=== PATIENT | female | born 1970 | race Caucasian/White ===

== ENCOUNTER 2018-09-23 06:49 | Inpatient (IN) | payer OTHER ==
[2018-09-23 07:20] LABS: ADD MAN DIFF? NO; URINE BLOOD (Dip) POC 3+ (NEGATIVE); URINE GLUCOSE (Dip) POC Negative (NEGATIVE); URINE KETONES (Dip) POC Negative (NEGATIVE); URINE LEUKOCYTE EST (Dip) POC Trace (NEGATIVE); URINE NITRITE (Dip) POC Negative (NEGATIVE); URINE TOTAL PROTEIN POC 1+ (NEGATIVE)
[2018-09-23 07:22] LABS: BASOPHIL # 0.1 10^3/ul (0.0-0.1); BASOPHILS % 0.4 % (0.0-2.0); EOSINOPHILS % 0.2 % (0.0-7.0); HEMATOCRIT 35.9 % (37.0-47.0); HEMOGLOBIN 12.1 g/dl (12.0-16.0); LYMPHOCYTES # 1.8 10^3/ul (0.8-2.9); LYMPHOCYTES % 13.8 % (15.0-51.0); MEAN CORPUSCULAR HGB CONC 33.7 g/dl (32.0-37.0); MEAN CORPUSCULAR VOLUME 92.1 fl (82.0-101.0); MEAN PLATELET VOLUME 10.7 fl (7.4-10.4); MONOCYTE # 0.6 10^3/ul (0.3-0.9); NEUTROPHIL # 10.2 10^3/ul (1.6-7.5); NEUTROPHILS % 80.3 % (39.0-77.0); PLATELET COUNT 229 10^3/UL (140-415); RED CELL DISTRIBUTION WIDTH 13.1 % (11.5-14.5)
[2018-09-23 07:22] LABS: WHITE BLOOD COUNT 12.7 10^3/ul (4.8-10.8)
[2018-09-23] MEDS: ONDANSETRON 4 MG INJ IV (07:25)
[2018-09-23] MEDS: morphine 2 MG INJ IV ×3 (07:25→20:48)
[2018-09-23 07:43] LABS: ALANINE AMINOTRANSFERASE 16 IU/L (13-69); ALBUMIN 4.3 g/dl (3.3-4.9); ALBUMIN/GLOBULIN RATIO 1.19; ALKALINE PHOSPHATASE 78 IU/L (42-121); ANION GAP 7 (5-13); ASPARTATE AMINO TRANSFERASE 25 IU/L (15-46); BILIRUBIN,INDIRECT 0.5 mg/dl (0-1.1); BILIRUBIN,TOTAL 0.5 mg/dl (0.2-1.3); BLOOD UREA NITROGEN 17 mg/dl (7-20); CALCIUM 9.5 mg/dl (8.4-10.2); CARBON DIOXIDE 24 mmol/L (21-31); CHLORIDE 111 mmol/L (97-110); CREATININE 0.79 mg/dl (0.44-1.00); Estimated GFR > 60 mL/min (>60); GLUCOSE 118 mg/dl (70-220); LIPASE 81 U/L (23-300); POTASSIUM 4.1 mmol/L (3.5-5.1); SODIUM 142 mmol/L (135-144); TOTAL PROTEIN 7.9 g/dl (6.1-8.1)
[2018-09-23] MEDS: KETOROLAC 30 MG INJ IV (09:51)
[2018-09-23] MEDS: HYDROmorphONE 0.5 MG/0.5 ML SYG IV (09:52)
[2018-09-23] MEDS: CEFTRIAXONE 1 GM/50 ML (PMX) 50 ML IVPB (09:52)
[2018-09-23] MEDS ORDERED: ALBUTEROL/IPRATROPIUM (NEB) 3 ML AMP HHN (12:00)
[2018-09-23] MEDS ORDERED: NITROGLYCERIN (SL) 0.4 MG TAB SL (12:00)
[2018-09-23] MEDS ORDERED: HYDROCODONE/APAP (5/325) TAB PO (12:00)
[2018-09-23] MEDS ORDERED: NACL 0.9% 3 ML SYG IV (12:00)
[2018-09-23] MEDS ORDERED: hydrALAzine 20 MG INJ IV (12:00)
[2018-09-23] MEDS ORDERED: DOCUSATE SODIUM 100 MG CAP PO (12:00)
[2018-09-23] MEDS ORDERED: LORAZEPAM 2 MG INJ IV (12:00)
[2018-09-23] MEDS ORDERED: ACETAMINOPHEN 325 MG TAB PO (12:00)
[2018-09-23] MEDS ORDERED: MAGNESIUM HYDROXIDE 30ML CUP PO (12:00)
[2018-09-23] MEDS ORDERED: ONDANSETRON 4 MG INJ IV (12:00)
[2018-09-23] MEDS: PIPER-TAZO 3.375 GM IV (PMX) 100 ML IVPB ×2 (12:36→17:04)
[2018-09-23 12:47] LABS: INR 0.99; PARTIAL THROMBOPLASTIN TIME 29.2 Sec (23.0-35.0); PROTIME 13.2 Sec (11.9-14.9)
[2018-09-23 13:04] LABS: FREE T4 (FREE THYROXINE) 0.87 ng/dl (0.64-1.79)
[2018-09-23 14:32] LABS: PROTIME 13.3 Sec (11.9-14.9)
[2018-09-23] MEDS: SOD CHLORIDE 0.45% 1,000 ML IV (16:26)
[2018-09-23] MEDS: TAMSULOSIN (SR) 0.4 MG CAP PO (20:30)
[2018-09-23] MEDS: HEPARIN 5,000 UNIT/1 ML VIAL SC (20:34)
[2018-09-24] MEDS: PIPER-TAZO 3.375 GM IV (PMX) 100 ML IVPB ×5 (00:32→23:08)
[2018-09-24] MEDS: SOD CHLORIDE 0.45% 1,000 ML IV ×3 (00:56→21:42)
[2018-09-24 05:26] LABS: ADD MAN DIFF? NO
[2018-09-24 05:27] LABS: BASOPHIL # 0.1 10^3/ul (0.0-0.1); BASOPHILS % 0.7 % (0.0-2.0); EOSINOPHILS # 0.1 10^3/ul (0.0-0.5); EOSINOPHILS % 2.1 % (0.0-7.0); HEMATOCRIT 33.7 % (37.0-47.0); HEMOGLOBIN 10.9 g/dl (12.0-16.0); LYMPHOCYTES # 2.1 10^3/ul (0.8-2.9); LYMPHOCYTES % 30.8 % (15.0-51.0); MEAN CORPUSCULAR HEMOGLOBIN 30.7 pg (29.0-33.0); MEAN CORPUSCULAR HGB CONC 32.3 g/dl (32.0-37.0); MEAN CORPUSCULAR VOLUME 94.9 fl (82.0-101.0); MEAN PLATELET VOLUME 11.1 fl (7.4-10.4); MONOCYTE # 0.6 10^3/ul (0.3-0.9); MONOCYTES % 8.3 % (0.0-11.0); NEUTROPHIL # 3.9 10^3/ul (1.6-7.5); PLATELET COUNT 203 10^3/UL (140-415); RED BLOOD COUNT 3.55 10^6/ul (4.20-5.40)
[2018-09-24 05:27] LABS: WHITE BLOOD COUNT 6.8 10^3/ul (4.8-10.8)
[2018-09-24 05:58] LABS: HEMOGLOBIN A1C 5.2 % (0-5.9)
[2018-09-24 06:01] LABS: ANION GAP 8 (5-13); BLOOD UREA NITROGEN 17 mg/dl (7-20); CALCIUM 8.6 mg/dl (8.4-10.2); CARBON DIOXIDE 26 mmol/L (21-31); CHLORIDE 106 mmol/L (97-110); CREATININE 0.82 mg/dl (0.44-1.00); Estimated GFR > 60 mL/min (>60); GLUCOSE 102 mg/dl (70-220); MAGNESIUM 1.9 mg/dl (1.7-2.5); PHOSPHORUS 4.3 mg/dl (2.5-4.9); POTASSIUM 3.9 mmol/L (3.5-5.1); SODIUM 140 mmol/L (135-144)
[2018-09-24 06:38] LABS: CHOL/HDL RATIO 4.6 RATIO; HDL CHOLESTEROL 44 mg/dl (37-92); LDL CHOLESTEROL,CALCULATED 127 mg/dl; TRIGLYCERIDES 169 mg/dl (0-149)
[2018-09-24 06:38] LABS: CHOLESTEROL 205 mg/dl (100-200)
[2018-09-24] MEDS ORDERED: CEFAZOLIN 1 GM INJ (07:00)
[2018-09-24] MEDS ORDERED: SEVOFLURANE 15 MIN (07:00)
[2018-09-24] MEDS: HEPARIN 5,000 UNIT/1 ML VIAL SC ×2 (07:38→21:00)
[2018-09-24] MEDS ORDERED: MIDAZOLAM 1 MG/ML 2 ML INJ (18:20)
[2018-09-24] MEDS ORDERED: PROPOFOL 20 ML ×2 (18:20→18:32)
[2018-09-24] MEDS ORDERED: LIDOCAINE 2% (SDV) 5 ML INJ (18:20)
[2018-09-24] MEDS ORDERED: DIPHENHYDRAMINE 50 MG INJ IV (18:30)
[2018-09-24] MEDS ORDERED: MEPERIDINE 25 MG INJ IV (18:30)
[2018-09-24] MEDS ORDERED: HYDROmorphONE 1 MG/5 ML IV SYRINGE IV ×2 (18:30)
[2018-09-24] MEDS ORDERED: FENTAnyl 50 MCG/ML VIAL IV ×3 (18:30)
[2018-09-24] MEDS ORDERED: PROCHLORPERAZINE 10 MG INJ IV (18:30)
[2018-09-24] MEDS ORDERED: ONDANSETRON 4 MG INJ (18:49)
[2018-09-24] MEDS ORDERED: DEXAMETHASONE 4 MG/ML 5 ML INJ (18:49)
[2018-09-24] MEDS ORDERED: EPHEDrine 25 MG/5 ML SYG ×2 (18:54→19:12)
[2018-09-24] MEDS: HYDROmorphONE 1 MG/5 ML IV SYRINGE IV (19:45)
[2018-09-24] MEDS: ONDANSETRON 4 MG INJ IV (19:45)
[2018-09-24] MEDS: TAMSULOSIN (SR) 0.4 MG CAP PO (20:41)
[2018-09-25 05:12] LABS: ADD MAN DIFF? NO
[2018-09-25 05:22] LABS: BASOPHILS % 0.2 % (0.0-2.0); HEMOGLOBIN 11.4 g/dl (12.0-16.0); LYMPHOCYTES # 0.7 10^3/ul (0.8-2.9); LYMPHOCYTES % 10.8 % (15.0-51.0); MEAN CORPUSCULAR HEMOGLOBIN 30.6 pg (29.0-33.0); MEAN CORPUSCULAR HGB CONC 32.6 g/dl (32.0-37.0); MEAN CORPUSCULAR VOLUME 93.8 fl (82.0-101.0); MEAN PLATELET VOLUME 10.9 fl (7.4-10.4); MONOCYTE # 0.1 10^3/ul (0.3-0.9); MONOCYTES % 0.9 % (0.0-11.0); NEUTROPHIL # 5.8 10^3/ul (1.6-7.5); NEUTROPHILS % 87.6 % (39.0-77.0); PLATELET COUNT 234 10^3/UL (140-415); RED BLOOD COUNT 3.73 10^6/ul (4.20-5.40); RED CELL DISTRIBUTION WIDTH 12.8 % (11.5-14.5)
[2018-09-25 05:22] LABS: WHITE BLOOD COUNT 6.6 10^3/ul (4.8-10.8)
[2018-09-25] MEDS: PIPER-TAZO 3.375 GM IV (PMX) 100 ML IVPB ×2 (05:35→12:55)
[2018-09-25 05:37] LABS: ANION GAP 9 (5-13); BLOOD UREA NITROGEN 9 mg/dl (7-20); CARBON DIOXIDE 24 mmol/L (21-31); CHLORIDE 109 mmol/L (97-110); CREATININE 0.55 mg/dl (0.44-1.00); Estimated GFR > 60 mL/min (>60); GLUCOSE 153 mg/dl (70-220); POTASSIUM 3.7 mmol/L (3.5-5.1); SODIUM 142 mmol/L (135-144)
== END 2018-09-25 14:33 | disposition home or self-care (01) | DRG 661 ==
LOC: E/R 06:49 → MS1 09:49
PROC: 0TC68ZZ Extirpation of Matter from Right Ureter, Via Natural or Artificial Opening Endoscopic (ICD-10-PCS; principal; 2018-09-24 17:30)
PROC: 0T768DZ Dilation of Right Ureter with Intraluminal Device, Via Natural or Artificial Opening Endoscopic (ICD-10-PCS; 2018-09-24 17:30)
DX: N13.2 Hydronephrosis with renal and ureteral calculous obstruction (principal); N39.0 Urinary tract infection, site not specified; Z98.51 Tubal ligation status
CPT/HCPCS: 36415; 71045; 74018; 74176; 74430; 80048; 80053; 80061; 81003; 81025; 83036; 83690; 83735; 84100; 84439; 84443; 85025; 85610; 85730; 87086; 88300; 93005; 96374; 96375; 99285-25